=== PATIENT | male | born 1960 | race Caucasian/White ===

== ENCOUNTER 2021-04-07 16:07 | Emergency (ER) | payer SELFPAY ==
[~2021-04-07] VITALS: Ht 182.9 cm; Wt 93.1 kg
[~2021-04-07 16:07] MED LIST: ALTOPREV20 MG OR; BL ADULT ASA81 MG OR; COUMADIN7.5 MG OR; ENALAPRIL10 MG OR; FISH OIL1200 M1 OR; METOPROL TAR25 M1 OR; METOPROLOL50 M1 OR; SIMVASTATIN80 MG OR
[2021-04-07 17:05] LABS: IMMATURE GRANULOCYTES 0.3 % (0.0-5.0); MEAN CELL VOLUME 86.4 fL CALC (80.0-100.0); MEAN CORPUSCULAR HGB 27.8 pG CALC (26.0-32.0); MEAN CORPUSCULAR HGB CONC 32.2 g/dL CAL (32.0-36.0); NEUT# 5.58 thou/uL (1.82-7.42); RED BLOOD COUNT 3.38 mill/uL (4.70-6.10); RED CELL DISTRI WIDTH 15.1 % (11.5-15.5)
[2021-04-07 17:08] LABS: HEMATOCRIT 29.2 % (39.0-50.0); HEMOGLOBIN 9.4 g/dl (14.0-18.0)
[2021-04-07 17:28] LABS: ALBUMIN 3.4 g/dL (3.2-5.0); BUN 8 mg/dL (9-20); BUN/CREATININE RATIO 12 (12-20 (CALC)); CARBON DIOXIDE 31 mmol/l (22-30); CHLORIDE 93 mmol/l (95-108); CREATININE 0.7 mg/dL (0.7-1.3); GFR > 60 ML/MIN (>=60 (CALC)); GFR FOR AFR.AMER. > 60 ML/MIN (>=60 (CALC)); SGOT/AST 47 u/l (17-59); TOTAL PROTEIN 7.9 g/dL (6.3-8.2)
[2021-04-07 17:29] LABS: ALKALINE PHOSPHATASE 158 u/l (38-126); ANION GAP 12 (6-22 (CALC)); BILIRUBIN, TOTAL 1.7 mg/dL (0.0-1.4); POTASSIUM 3.1 mmol/l (3.5-5.1); SODIUM 133 mmol/l (137-146)
[2021-04-07 17:42] LABS: URINE BLOOD DIPSTICK LARGE (NEGATIVE); URINE COLOR YELLOW; URINE GLUCOSE - DIPSTICK NEGATIVE (NEGATIVE); URINE KETONE NEGATIVE (NEGATIVE); URINE LEUK ESTERASE NEGATIVE (NEGATIVE); URINE PH 6.5 (4.5-8.0); URINE PROTEIN - DIPSTICK TRACE mg/dL (NEG-TRACE); URINE SPECIFIC GRAVITY 1.015; URINE UROBILINOGEN - DIPSTICK >=8.0 E.U./dL (0.2)
[2021-04-07 17:43] LABS: PROTHROMBIN TIME 67.2 SECONDS (9.0-12.5)
[2021-04-07 17:44] LABS: INTERNATIONAL NORMALIZED RATIO 7.3 RATIO (0.7-1.3)
[2021-04-07 17:44] LABS: URINE BILIRUBIN - DIPSTICK SMALL (NEGATIVE); URINE NITRITE - DIPSTICK NEGATIVE (Negative)
[2021-04-07 18:00] LABS: URINE RBC 25-50 RBC/hpf (0-5); URINE WBC 0-2 WBC/hpf (0-5)
[2021-04-07 18:16] VITALS: BP 130/82
--- NOTE | 2021-04-09 09:01 | NUR ---
PRELIM BLOOD CX SHOWS GRAM POSITIVE COCCI IN 4/4. REPORTED TO DR CALL. CALLED PT, ADVISED TO RETURN TO ER FOR EVALUATION. PT CONFIRMS HE WILL COME BACK TODAY AT LUNCHTIME.
== END 2021-04-07 18:18 | disposition left against medical advice (07) | DRG 948 ==
LOC: ED 16:07
PROVIDERS: Family Medicine
DX: R79.1 Abnormal coagulation profile (principal); T45.515A Adverse effect of anticoagulants, initial encounter; D64.9 Anemia, unspecified; R00.0 Tachycardia, unspecified; I10 Essential (primary) hypertension; I25.2 Old myocardial infarction; Z91.19 Patient's noncompliance with other medical treatment and regimen; Z95.2 Presence of prosthetic heart valve; Z95.1 Presence of aortocoronary bypass graft; Z79.01 Long term (current) use of anticoagulants; Z20.822 Contact with and (suspected) exposure to COVID-19

== ENCOUNTER 2022-02-24 10:40 | Emergency (ER) | payer SELFPAY ==
[2022-02-24] VITALS (17 sets, daily range): BP systolic 116–130; BP diastolic 65–83
[~2022-02-24] VITALS: Ht 182.9 cm; Wt 87.0 kg
[2022-02-24 11:11] LABS: HEMATOCRIT 20.2 % (39.0-50.0); HEMOGLOBIN 6.4 g/dl (14.0-18.0); IMMATURE GRANULOCYTES 0.4 % (0.0-5.0); MEAN CELL VOLUME 82.4 fL CALC (80.0-100.0); MEAN CORPUSCULAR HGB 26.1 pG CALC (26.0-32.0); MEAN CORPUSCULAR HGB CONC 31.7 g/dL CAL (32.0-36.0); NEUT# 6.39 thou/uL (1.82-7.42); RED BLOOD COUNT 2.45 mill/uL (4.70-6.10); RED CELL DISTRI WIDTH 19.4 % (11.5-15.5)
[2022-02-24 11:15] LABS: ALBUMIN 3.4 g/dL (3.2-5.0); BILIRUBIN, TOTAL 1.6 mg/dL (0.0-1.4); POTASSIUM 3.3 mmol/l (3.5-5.1); TOTAL PROTEIN 8.1 g/dL (6.3-8.2)
[2022-02-24 11:18] LABS: CREATININE 1.9 mg/dL (0.7-1.3)
[2022-02-24 11:47] LABS: INTERNATIONAL NORMALIZED RATIO 2.4 RATIO (0.7-1.3); PROTHROMBIN TIME 24.2 SECONDS (9.0-12.5)
== END 2022-02-24 16:15 | disposition home or self-care (01) | DRG 812 ==
LOC: ED 10:40
PROVIDERS: Family Medicine
PROC: 30233N1 Transfusion of Nonautologous Red Blood Cells into Peripheral Vein, Percutaneous Approach (ICD-10-PCS; principal; 2022-02-24)
DX: D64.9 Anemia, unspecified (principal); I10 Essential (primary) hypertension; E78.5 Hyperlipidemia, unspecified; I25.2 Old myocardial infarction; Z79.01 Long term (current) use of anticoagulants; Z95.2 Presence of prosthetic heart valve; Z95.1 Presence of aortocoronary bypass graft; Z91.19 Patient's noncompliance with other medical treatment and regimen
CPT/HCPCS: P9016